=== PATIENT | male | born 1990 | race Caucasian/White ===

== ENCOUNTER 2024-04-01 11:10 | Emergency (ER) | payer OTHER, SELFPAY ==
[2024-04-01 11:16] VITALS: BP 122/86
[2024-04-01 11:44] LABS: % Eosinophils 9.8 % (0-6); % Immature Granulocytes 0.2 % (0-0.5); % Lymphocytes 33.4 % (20.5-51.1); % Monocytes 7.2 % (1.7-9.3); % Neutrophils 48.4 % (42.2-75.2); Absolute Basophils 0.1 10^3/uL (0-0.2); Absolute Eosinophils 0.6 10^3/uL (0-0.7); Absolute Monocytes 0.4 10^3/uL (0.1-0.6); Absolute Neutrophils 2.8 10^3/uL (1.4-6.5); Hematocrit 48.5 % (39.0-52.0); Hemoglobin 16.7 g/dL (13.0-18.0); Mean Corp Hgb Conc. 34.4 g/dL (33.0-37.0); Mean Corpuscular Hgb 29.9 pg (27.0-31.0); Mean Corpuscular Volume 86.9 fL (80.0-94.0); Mean Platelet Volume 11.1 fL (7.4-10.4); Nucleated Red Blood Cells % 0 % (-); Platelet Count 214 10^3/uL (130-400); Red Blood Cell Count 5.58 10^6/uL (4.70-6.10); Red Cell Dist. Width 13.1 % (11.5-14.5); White Blood Cell Count 5.8 10^3/uL (4.8-10.8)
[2024-04-01 11:49] LABS: Urine Albumin Negative (Neg - Trace); Urine Bilirubin Negative (Negative); Urine Character Clear (Clear); Urine Color Yellow; Urine Glucose Negative (Negative); Urine Ketone Negative (Negative); Urine Leukocyte Negative (Negative); Urine Nitrite Negative (Negative); Urine Occult Blood Negative (Negative); Urine Urobilinogen Negative (Neg - 1+)
[2024-04-01 11:53] LABS: ALT (SGPT) 28 U/L (0-50); AST (SGOT) 30 U/L (17-59); Albumin 4.8 g/dl (3.5-5.0); Alkaline Phosphatase 59 U/L (38-126); Blood Urea Nitrogen 16 mg/dl (9-20); Calcium 9.5 mg/dl (8.4-10.2); Carbon Dioxide 29 mmol/L (22-30); Chloride 100 mmol/L (98-107); Glucose 88 mg/dl (70-99); Lipase 78 U/L (23-300); Potassium 4.4 mmol/L (3.5-5.1); Sodium 138 mmol/L (135-145); Total Bilirubin 1.9 mg/dl (0.2-1.3); Total Protein 7.4 g/dl (6.3-8.2); eGFR > 60.00
--- NOTE | 2024-04-01 13:46 | ED.GENMED ---
History of Present Illness
General
Chief Complaint: Abdominal Pain
Source: patient
Exam Limitations: none
Time Seen by Provider: 04/01/24 13:33
History of Present Illness
History of Present Illness:
33yoM with no significant past medical history presenting for evaluation of abdominal pain. Symptoms initially began 1 week ago. He recently stopped a carnivore diet and had some ice cream 1 week ago which he has not eaten in quite a while. He
started to have significant abdominal discomfort afterwards. His daughter was also recently sick so he assumed he had a stomach bug. The pain has been intermittent over the past week and is worse with eating. Pain is present in the left upper
quadrant and is described as a dull pain. He currently has a mild gas-like pain. He reports nausea but denies vomiting. Bowel movements have been alternating between constipation and diarrhea. Patient is worried that he may have gallstones or
pancreatitis. He denies any fevers, acid reflux, difficulty urinating. No previous abdominal surgeries.
Phy Exam
General Physical Exam
General Presentation: well appearing and no apparent distress
General age: appears stated age
General Skin: warm and dry
General Habitus: normal
General Mental: alert
ENT Exam
ENT Exam: normocephalic
Pulmonary Exam
Pulmonary Exam: no respiratory distress
Gastrointestinal Exam
Gastrointestinal Exam: soft, non distended and other (+Mild tenderness in epigastrium and LUQ. Abdomen soft, non-distended. No rebound or guarding. )
Neurological Exam
Neurological Exam: alert
[place] Coma Scale
Eye Opening: Spontaneous
Verbal Response: Oriented
Motor Response: Obeys Commands
GCS Total Score: 15
Skin Exam
Skin Exam: normal color and warm/dry
Psychiatric Exam
Psychiatric Exam: normal mood/affect
Course
Orders/Labs/Results
Orders:
Orders
04/01/24 11:20
IV Insert/Care/Rem.- Treatment PRN
04/01/24 11:31
Complete Blood Count/With Diff Urgent
Comprehensive Metabolic Panel Urgent
Lipase Urgent
Urinalysis Reflex To Culture Urgent
Date Specimen was Collected: 04/01/24
Time Specimen was Collected: 11:21
04/01/24 13:45
US Abdomen Complete/Upper Urgent
Comment:
Reason For Exam: Upper abd pain
Abnormal Lab Results
04/01/24
11:31
MPV 11.1 H fL
(7.4-10.4)
Eosinophils % 9.8 H %
(0-6)
Total Bilirubin 1.9 H mg/dl
(0.2-1.3)
04/01/24 11:31
04/01/24 11:31
Vital Signs
Initial and Last Documented VS:
Initial Vital Signs
Temp Pulse Resp BP Pulse Ox
98.1 F 75 18 122/86 99
04/01/24 11:16 04/01/24 11:16 04/01/24 11:16 04/01/24 11:16 04/01/24 11:16
Last Documented Vital Signs
Temp Pulse Resp BP Pulse Ox
98.1 F 78 16 130/70 98
04/01/24 11:16 04/01/24 13:48 04/01/24 13:48 04/01/24 14:30 04/01/24 13:48
MDM/Problems Addressed
Differential Diagnosis Includes:
33yoM here with LUQ pain. Intermittent x 1 week. Worse with eating. Also having nausea. VSS. He is well appearing in no distress. No signs of peritonitis on abdominal exam. Differential diagnosis includes but is not limited to: gastritis, PUD,
pancreatitis, biliary colic
Initial ED plan: Labs obtained in triage which are unremarkable including normal white count, lipase, renal function, and LFTs. Will obtain upper abdominal ultrasound. Patient declines analgesics.
*Critical Care Note
Total Time (30-74mins, 75-104mins- exclusive of procedures): Not Applicable
Update Note
Update Note:
Case signed out to Radha Saunders PA-C pending ultrasound results. Final disposition pending.
ED Attending Note
-
Portions of this chart may have been created with voice recognition software.� Occasional wrong word or��sound alike� substitutions may have occurred due to the inherent limitations of voice recognition software.
Discharge Plan
Departure
Patient Disposition: Home (Routine Discharge)
Date of Disposition: 04/01/24
Time of Disposition: 17:13
Patient with high blood pressure during this ER visit?: Yes
Condition: Good
Discharge Problem:
Left upper quadrant abdominal pain
Instructions: [place] diet, Abdominal Pain
Referrals:
NONE,* [Family Provider] -
Sancho Easley, DO [Active] -
Activity Restrictions/Additional Instructions:
Eat a bland diet.
Please call tomorrow to schedule a follow-up appointment with gastroenterology. Return to the ER with any new or worsening symptoms.
Interventions
Interventions:
*Risk Screen - Suicide Last Done: 04/01/24 11:16
*General Assessment Last Done: 04/01/24 11:16
*Neglect/Abuse Screening Last Done: 04/01/24 11:16
ED- Fall Risk Assessment Last Done: 04/01/24 13:50
*Nursing Disposition Last Done: 04/01/24 17:39
NN-Rtmcdu-Hhetxmquze Assessment Last Done: 04/01/24 13:48
Discharge Date and Time
Discharge Date/Time: 04/01/24 17:40
Print Language: MALAY
[2024-04-01 13:48] VITALS: BP 132/78
[2024-04-01 14:30] VITALS: BP 130/70
== END 2024-04-01 17:40 | disposition home or self-care (01) ==
LOC: EMR 11:10
PROVIDERS: EMERGENCY PHYSICIAN Emergency Medicine
DX: R10.12 Left upper quadrant pain (principal); R11.0 Nausea; R19.4 Change in bowel habit; R03.0 Elevated blood-pressure reading, without diagnosis of hypertension
CPT/HCPCS: 99284; 76700; 80053; 81003; 83690; 85025